=== PATIENT | male | born 1965 | race Two or more races ===

== ENCOUNTER 2024-05-20 15:10 | Outpatient (CLI) | payer OTHER ==
[2024-05-20 16:38] LABS: URINE APPEARANCE Clear; URINE BILIRRUBIN Negative (NEGATIVE); URINE BLOOD Negative; URINE COLOR Yellow; URINE GLUCOSE Negative (NEGATIVE); URINE KETONE Trace (NEGATIVE); URINE LEUKOCYTE Negative; URINE NITRATE Negative; URINE PROTEIN Negative (NEGATIVE)
[2024-05-20 16:42] LABS: URINE BACTERIA 6.1 uL (0.0-1933); URINE EPITHELIAL CELLS 1.7 uL (0.0-38.8); URINE RBC 3.2 uL (0.0-20.8); URINE WBC 2.6 uL (0.0-23.2)
[2024-05-20 17:03] LABS: URINE CAST 0.44 uL (0.0-1.40)
== END 2024-05-20 15:17 | disposition home or self-care (01) ==
LOC: LAB 15:10
PROVIDERS: ATTEND Urology
DX: N30.00 Acute cystitis without hematuria (principal); R97.20 Elevated prostate specific antigen [PSA]

== ENCOUNTER 2024-05-21 11:40 | Outpatient (CLI) | payer OTHER | END 2024-05-21 11:51 | disposition home or self-care (01) | LOC: SONOGRAMA 11:40 | PROVIDERS: ATTEND Urology | DX: N30.00 Acute cystitis without hematuria (principal); I86.1 Scrotal varices; R31.1 Benign essential microscopic hematuria ==